=== PATIENT | male | born 1980 | race African-American/Black ===

== ENCOUNTER 2017-01-05 07:40 | Emergency (ER) | payer MEDICAID ==
[~2017-01-05] VITALS: Ht 167.6 cm; Wt 71.2 kg
[2017-01-05] MEDS ORDERED: OLAN2.5T3 PO (08:33)
[2017-01-05] MEDS ORDERED: BENZTROPINE 1 MG (08:33)
--- NOTE | 2017-01-05 08:52 | NUR ---
PT IS IN ROOM #2B UNDER DIRECT RN SUPERVISION. DR COCHRAN EVALUATED THE PT.
[2017-01-05 09:48] LABS: *BILIRUBIN,URIN NEGATIVE (NEGATIVE); *BLOOD, URINE Trace-intact (NEGATIVE); *CLARITY,URINE SLIGHTLY CLOUDY (CLEAR); *COLOR,URINE YELLOW (YELLOW); *KETONES,URINE NEGATIVE (NEGATIVE); *PROTEIN,URINE NEGATIVE (NEGATIVE); *UROBILINOGEN,URINE 0.2 E.U./dl (NORMAL); LEUKOCYTE ESTERASE ,URINE TRACE (NEGATIVE); NITRITE, URINE NEGATIVE (NEGATIVE); UGLUCOSE NEGATIVE (NEGATIVE)
--- NOTE | 2017-01-05 09:50 | NUR ---
CONTINUE TO MONITOR THE PT.
[2017-01-05 10:01] LABS: *AMPHETAMINE, URINE NEGATIVE (NEGATIVE); *BARBITURATE, URINE NEGATIVE (NEGATIVE); *CANNABINOID, URINE NEGATIVE (NEGATIVE); *COCCAINE, URINE NEGATIVE (NEGATIVE); *OPIATE, URINE NEGATIVE (NEGATIVE); *PHENCYCLIDINE SCREEN,URINE NEGATIVE (NEGATIVE)
[2017-01-05 10:13] LABS: BACTERIA,URINE FEW /HPF (NONE SEEN); SQUAMOUS EPITHELIAL CELL,UR FEW /HPF (NONE SEEN)
[2017-01-05 10:38] LABS: BASOPHILS % (AUTO) 0.4 % (0.0-2.0); EOSINOPHILS # (AUTO) 0.5 K/uL (0.0-0.7); EOSINOPHILS % (AUTO) 6.1 % (0.0-7.0); HEMATOCRIT 42.1 % (40-50); LYMPHOCYTES # (AUTO) 1.8 K/UL (0.8-4.8); MEAN CORPUSCULAR HEMOGLOBIN 29.6 UUG (27.0-31.0); MEAN CORPUSCULAR HGB CONC 33 g/dL (32.0-37.0); MEAN CORPUSCULAR VOLUME 88.8 FL (82.0-92.0); MONOCYTES # (AUTO) 0.7 K/UL (0.1-1.30); MONOCYTES % (AUTO) 8.3 % (0.0-11.0); NEUTROPHILS # (AUTO) 5.2 K/UL (1.8-8.9); NEUTROPHILS % (AUTO) 63.2 % (38.5-71.5); PLATELET COUNT (AUTO) 264 K/UL (150-450); RED BLOOD CELL COUNT(AUTO) 4.74 MIL/UL (4.7-6.1); WHITE BLOOD COUNT (AUTO) 8.2 K/UL (4.0-11.2)
[2017-01-05 11:03] LABS: ETHANOL < 3 MG/DL (0-0)
[2017-01-05 11:04] LABS: CARBON DIOXIDE 30 mmol/L (21-32); CHLORIDE 105 mmol/L (98-107); CREATININE 0.8 mg/dL (0.6-1.3); GLUCOSE 107 mg/dL (74-106); POTASSIUM 3.6 mmol/L (3.5-5.1); UREA NITROGEN, BLOOD 16 mg/dL (7-18)
[2017-01-05 11:09] LABS: ALANINE AMINOTRANSFERASE 21 U/L (16-63); ALKALINE PHOSPHATASE 69 U/L (50-136); ASPARTATE AMINOTRANSFERASE 19 U/L (15-37); BILIRUBIN,DIRECT 0.1 mg/dL (0.0-0.2); BILIRUBIN,TOTAL 0.2 mg/dL (0.2-1.0); TOTAL PROTEIN, SERUM 7.7 g/dL (6.4-8.2)
[2017-01-05 11:11] LABS: ACETAMINOPHEN < 2.0 ug/mL (10-30)
--- NOTE | 2017-01-05 14:12 | NUR ---
PT WAS EVALUATED BY DINORAH RODRIGUEZ. NO S/S OF DISTRESS AT TIS TIME. CONTINUE TO MONITOR THE PT.
--- NOTE | 2017-01-05 18:29 | NUR ---
CALLED TO [facility] [phone], TALKED TO SHAKA. HE PROMISED TO FIGURE OUT WHEN THEY IS GOING TO ADMIT THE PT AND CALL US BACK WITH INFORMATION.
--- NOTE | 2017-01-05 18:40 | NUR ---
SHAKA FROM [facility] CALLED BACK WITH TRANSFER UPDATE. PT IS GOING TO BE ADMITED TO [facility] AFTER THEY WILL DISCHARGE A FEW PTs. THEY IS GOING TO ALISSA L US BACK WITH INFORMATION LATER AGAIN.
--- NOTE | 2017-01-05 19:04 | NUR ---
Patient is Suicidal Ideation, on 5150 hold. Collection Advisor Patricio RN aware of need for 1:1 sitter. No sitter available at this time. Nursing office is aware of issue. Will continue to monitor patient.
--- NOTE | 2017-01-05 19:12 | NUR ---
Assumed care of kayla from [facility]. Patient in observation, pending transfer to [facility]. Per Ruperto , facility field service representative patient is awaiting bed availability. No bed available at this time.
--- NOTE | 2017-01-05 19:44 | NUR ---
Called [facility], Spoke to Han. Per Han, no beds available. Possibly none available until 01/06.
--- NOTE | 2017-01-05 21:55 | NUR ---
Patient is asleep, comfortable, no distress noted. Will continue to monitor.
--- NOTE | 2017-01-05 23:07 | NUR ---
Spoke with Han at [facility]. No beds available at this time. Bry Hernandez aware, unable to locate other facility for placement. Awaiting bed availability.
--- NOTE | 2017-01-06 04:41 | NUR ---
Patient is calm, asleep in bed. No distress noted. No pain noted
--- NOTE | 2017-01-06 06:49 | NUR ---
Patient is awake, alert, oriented x4. no signs of distress noted. n
--- NOTE | 2017-01-06 07:36 | NUR ---
PATRICIA FROM [facility] CALLED WITH TRANSFER INFORMATION. ACCORDING TO HIM BED FOR THE PT IS GOING TO NE AVAILABLE AT 08:30 AM AT [facility] . [facility] WILL CALL US. PT IS RESTING IN THE BED COMFORTABLY . NO S/S OF ACUTE DISTRESS AT THIS TME. CONTINUE TO MONITOR THE PT.
--- NOTE | 2017-01-06 11:44 | NUR ---
cesario, intake center customer retention representative called with transfer information. pt is going to be transfered to [facility], unit p-6, room #609b. admiting doctor is doctor Walker.
--- NOTE | 2017-01-06 11:56 | NUR ---
[facility] WAS CALLED TO TRNSFER THE PT. RUI IS 45 MINUTES. PT IS RESTING IN THE BED COMFORTABLY. NO S/S OF DISTRESS. CONTINUE TO MONITOR THE PT.
--- NOTE | 2017-01-06 12:46 | NUR ---
PT WAS TRANSFERED TO [facility] VIA BLS AMBULANCE. REPORT WAS GIVEN TO [facility] RN AND TO AMBULANCE RN.
== END 2017-01-06 12:56 | disposition short-term general hospital (02) ==
LOC: ER 07:42
DX: F20.0 Paranoid schizophrenia (principal); M19.90 Unspecified osteoarthritis, unspecified site; Z88.8 Allergy status to other drugs, medicaments and biological substances; Z87.891 Personal history of nicotine dependence; Z59.0 Homelessness
CPT/HCPCS: 36415; 80307; 85025; A4663; G0480; G0480-TC

== ENCOUNTER 2018-01-16 18:18 | Emergency (ER) | payer SELFPAY ==
[~2018-01-16] VITALS: Ht 165.1 cm; Wt 69.4 kg
[~2018-01-16 18:18] MED LIST: BENZTROPINE 1 MG PO; OLAN2.5T3 PO
--- NOTE | 2018-01-16 19:10 | NUR ---
Bry Hernandez LCSW at bedside for pt psych evaluation.
[2018-01-16] MEDS ORDERED: OLANZAPINE 5 MG TABLET PO ONE (19:15)
[2018-01-16] MEDS ORDERED: OLANZAPINE 5 MG TABLET ONE (19:22)
--- NOTE | 2018-01-16 19:24 | NUR ---
Patient provided urine sample, sent to lab. Placed ice pack on both arms.
[2018-01-16 19:48] LABS: BASOPHILS % (AUTO) 0.3 % (0.0-2.0); EOSINOPHILS % (AUTO) 0.1 % (0.0-7.0); HEMATOCRIT 41.7 % (36.7-47.1); HEMOGLOBIN 14.1 g/dL (12.5-16.3); MEAN CORPUSCULAR HEMOGLOBIN 30.8 uug (23.8-33.4); MEAN CORPUSCULAR HGB CONC 34 g/dL (32.5-36.3); MEAN CORPUSCULAR VOLUME 90.9 fL (73.0-96.2); MONOCYTES # (AUTO) 1.5 K/uL (2.0-10.0); MONOCYTES % (AUTO) 11.7 % (0.0-11.0); NEUTROPHILS # (AUTO) 9.6 K/uL (1.8-8.9); NEUTROPHILS % (AUTO) 72.9 % (38.5-71.5); PLATELET COUNT (AUTO) 253 K/uL (152-348); RED BLOOD CELL COUNT(AUTO) 4.58 MIL/uL (4.06-5.63); WHITE BLOOD COUNT (AUTO) 13.1 K/uL (3.6-10.2)
[2018-01-16 19:53] LABS: *BILIRUBIN,URIN 1+ (NEGATIVE); *BLOOD, URINE 1+ (NEGATIVE); *CLARITY,URINE CLEAR (CLEAR); *COLOR,URINE YELLOW (YELLOW); *KETONES,URINE 1+ (NEGATIVE); *PROTEIN,URINE 2+ (NEGATIVE); *UROBILINOGEN,URINE 0.2 E.U./dl (NORMAL); LEUKOCYTE ESTERASE ,URINE NEGATIVE (NEGATIVE); NITRITE, URINE NEGATIVE (NEGATIVE); PH,URINE 5.5 (5.0-8.0); UGLUCOSE NEGATIVE (NEGATIVE)
[2018-01-16 20:02] LABS: CARBON DIOXIDE 27 mmol/L (21-32); CHLORIDE 106 mmol/L (98-107); CREATININE 0.9 mg/dL (0.6-1.3); GLUCOSE 105 mg/dL (74-106); POTASSIUM 3.7 mmol/L (3.5-5.1); UREA NITROGEN, BLOOD 23 mg/dL (7-18)
[2018-01-16 20:03] LABS: BACTERIA,URINE NONE SEEN /HPF (NONE SEEN); SQUAMOUS EPITHELIAL CELL,UR FEW /HPF (NONE SEEN); WBC,URINE 0-3 /HPF (0-3)
[2018-01-16 20:07] LABS: ALANINE AMINOTRANSFERASE 29 U/L (16-63); ALKALINE PHOSPHATASE 65 U/L (50-136); ASPARTATE AMINOTRANSFERASE 37 U/L (15-37); BILIRUBIN,DIRECT 0.2 mg/dL (0.0-0.2); BILIRUBIN,TOTAL 0.7 mg/dL (0.2-1.0); TOTAL PROTEIN, SERUM 8.1 g/dL (6.4-8.2)
[2018-01-16 20:09] LABS: ACETAMINOPHEN < 2.0 ug/mL (10-30); ETHANOL < 3 MG/DL (0-0)
[2018-01-16 20:10] LABS: *AMPHETAMINE, URINE NEGATIVE (NEGATIVE); *BARBITURATE, URINE NEGATIVE (NEGATIVE); *CANNABINOID, URINE NEGATIVE (NEGATIVE); *COCCAINE, URINE NEGATIVE (NEGATIVE); *OPIATE, URINE NEGATIVE (NEGATIVE); *PHENCYCLIDINE SCREEN,URINE NEGATIVE (NEGATIVE)
--- NOTE | 2018-01-16 21:15 | NUR ---
Pt states feeling better, no longer feeling suicidal. Bry Hernandez [facility] notified, spoke with Dr. Alicea.
--- NOTE | 2018-01-16 21:28 | NUR ---
Patient discharged to home in stable conditon. Written and verbal after care instructions given. Patient verbalizes understanding of instructions. Patient ambulated out of ER with steady gait, no acute signs of distress, VSS, all belongings taken.
[2018-01-16 21:29] VITALS: BP 138/93
== END 2018-01-16 21:29 | disposition home or self-care (01) ==
LOC: ER 18:26
DX: F20.9 Schizophrenia, unspecified (principal); F17.210 Nicotine dependence, cigarettes, uncomplicated; Z88.8 Allergy status to other drugs, medicaments and biological substances; Z59.0 Homelessness; Z79.899 Other long term (current) drug therapy
CPT/HCPCS: 36415; 80048; 80076; 80307; 81001; 85025; 99284; A4663; G0480 ×2; G0481

== ENCOUNTER 2018-02-15 21:00 | Emergency (ER) | payer MEDICAID ==
[~2018-02-15] VITALS: Ht 165.1 cm; Wt 70.8 kg
[2018-02-15 21:43] LABS: *BILIRUBIN,URIN NEGATIVE (NEGATIVE); *BLOOD, URINE Trace-lysed (NEGATIVE); *CLARITY,URINE CLEAR (CLEAR); *COLOR,URINE YELLOW (YELLOW); *KETONES,URINE NEGATIVE (NEGATIVE); *PROTEIN,URINE NEGATIVE (NEGATIVE); *UROBILINOGEN,URINE 0.2 E.U./dl (NORMAL); LEUKOCYTE ESTERASE ,URINE NEGATIVE (NEGATIVE); NITRITE, URINE NEGATIVE (NEGATIVE); UGLUCOSE NEGATIVE (NEGATIVE)
[2018-02-15 21:54] LABS: BACTERIA,URINE RARE /HPF (NONE SEEN); RBC,URINE 0-3 /HPF (0-3); SQUAMOUS EPITHELIAL CELL,UR FEW /HPF (NONE SEEN)
[2018-02-15 22:06] LABS: *AMPHETAMINE, URINE NEGATIVE (NEGATIVE); *BARBITURATE, URINE NEGATIVE (NEGATIVE); *CANNABINOID, URINE NEGATIVE (NEGATIVE); *COCCAINE, URINE NEGATIVE (NEGATIVE); *OPIATE, URINE NEGATIVE (NEGATIVE); *PHENCYCLIDINE SCREEN,URINE NEGATIVE (NEGATIVE)
[2018-02-15 22:09] LABS: BASOPHILS # (AUTO) 0.1 K/uL (0.0-8.0); BASOPHILS % (AUTO) 0.6 % (0.0-2.0); EOSINOPHILS # (AUTO) 0.1 K/uL (0.0-0.7); EOSINOPHILS % (AUTO) 0.8 % (0.0-7.0); HEMATOCRIT 42.5 % (36.7-47.1); HEMOGLOBIN 14.3 g/dL (12.5-16.3); LYMPHOCYTES # (AUTO) 2.7 K/uL (20.0-40.0); LYMPHOCYTES % (AUTO) 23.6 % (20.5-51.5); MEAN CORPUSCULAR HEMOGLOBIN 31.4 uug (23.8-33.4); MEAN CORPUSCULAR HGB CONC 34 g/dL (32.5-36.3); MEAN CORPUSCULAR VOLUME 93.4 fL (73.0-96.2); MONOCYTES % (AUTO) 8.8 % (0.0-11.0); NEUTROPHILS # (AUTO) 7.4 K/uL (1.8-8.9); NEUTROPHILS % (AUTO) 66.2 % (38.5-71.5); PLATELET COUNT (AUTO) 284 K/uL (152-348); RED BLOOD CELL COUNT(AUTO) 4.55 MIL/uL (4.06-5.63); WHITE BLOOD COUNT (AUTO) 11.3 K/uL (3.6-10.2)
[2018-02-15 22:21] LABS: ALANINE AMINOTRANSFERASE 35 U/L (16-63); ALKALINE PHOSPHATASE 62 U/L (50-136); ASPARTATE AMINOTRANSFERASE 14 U/L (15-37); BILIRUBIN,DIRECT 0.1 mg/dL (0.0-0.2); BILIRUBIN,TOTAL 0.2 mg/dL (0.2-1.0); CARBON DIOXIDE 23 mmol/L (21-32); CHLORIDE 106 mmol/L (98-107); CREATININE 1.2 mg/dL (0.6-1.3); GLUCOSE 115 mg/dL (74-106); POTASSIUM 4.2 mmol/L (3.5-5.1); TOTAL PROTEIN, SERUM 7.7 g/dL (6.4-8.2); UREA NITROGEN, BLOOD 20 mg/dL (7-18)
[2018-02-15 22:27] LABS: ACETAMINOPHEN < 2.0 ug/mL (10-30)
--- NOTE | 2018-02-15 22:34 | NUR ---
Pt is resting in bed, calm, cooperative. Sitter at bedside.
--- NOTE | 2018-02-15 22:45 | NUR ---
Pt eating dinner. NORM ZelayaW, to arrive in 20 min.
[2018-02-15 23:10] LABS: ETHANOL < 3 MG/DL (0-0)
--- NOTE | 2018-02-15 23:16 | NUR ---
Bry Hernandez, MANAGER OF PROJECT MANAGEMENT, here for psych eval.
[2018-02-15] MEDS ORDERED: BENZTROPINE MESYLATE 0.5 MG TABLET PO ONE (23:45)
[2018-02-15] MEDS ORDERED: OLANZAPINE 5 MG TABLET PO ONE (23:45)
[2018-02-15] MEDS ORDERED: OLANZAPINE 5 MG TABLET ONE (23:50)
[2018-02-15] MEDS ORDERED: BENZTROPINE MESYLATE 0.5 MG TABLET ONE (23:50)
--- NOTE | 2018-02-15 23:53 | NUR ---
Patient discharged to home in stable conditon. Written and verbal after care instructions given. Patient verbalizes understanding of instructions. Pt ambulated out of ER in steady gait. All belongings with pt. VSS. No acute distress noted. Pt denies any SI at this time.
[2018-02-15 23:54] VITALS: BP 124/74
== END 2018-02-15 23:55 | disposition home or self-care (01) ==
LOC: ER 21:01
DX: F32.9 Major depressive disorder, single episode, unspecified (principal); F17.200 Nicotine dependence, unspecified, uncomplicated; Z88.8 Allergy status to other drugs, medicaments and biological substances; Z59.0 Homelessness; Z79.899 Other long term (current) drug therapy
CPT/HCPCS: 36415; 71045; 80307; 85025; 93005; A4663; G0480; G0480-TC